=== PATIENT | male | born 1965 ===

== ENCOUNTER 2017-06-28 10:09 | Observation (INO) | payer OTHER ==
[2017-06-28 10:09] VITALS: BMI 25.5
--- NOTE | 2017-06-28 10:53 | C.PDOC ---
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 PS AWOKE "LIKE NORMAL" WAS SMOKING COCAINE WHILE SITTING IN CHAIR, WENT TO GET UP AND WALK BUT "MY LEG WAS ". UNABLE TO WT BEAR. SX NOW RESOLVED. NO TRAUMA. DENIES HEROIN, PCP USE. DENIES SUICIDAL IDEATION. NOT REQUESTING DETOX. 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 NO SI/SA REMAINDER NEG Time Seen by Provider: 06/28/17 10:47 Chief Complaint (Nursing): Substance Abuse History Per: Patient History/Exam Limitations: no limitations Past Medical History Reviewed: Historical Data, Nursing Documentation, Vital Signs Vital Signs: Last Vital Signs Temp 97.6 F 06/28/17 13:36 Pulse 90 06/28/17 13:36 Resp 20 06/28/17 13:36 BP 151/90 H 06/28/17 13:36 Pulse Ox 100 06/28/17 15:50 - Medical History PMH: Diabetes, HTN Denies: Chronic Kidney Disease Family History: States: No Known Family Hx - Social History Hx Tobacco Use: No Hx Alcohol Use: No Hx Substance Use: Yes - Immunization History Hx Tetanus Toxoid Vaccination: No Hx Influenza Vaccination: Yes Hx Pneumococcal Vaccination: No Review Of Systems Constitutional: Negative for: Fever Cardiovascular: Negative for: Chest Pain Gastrointestinal: Negative for: Vomiting Musculoskeletal: Positive for: Other (LEFT LEG DEADNESS) Psych: Negative for: Suicidal ideation, Withdrawal Physical Exam - Physical Exam Appears: Non-toxic, No Acute Distress, Other (poor hygeine) Skin: Normal Color, Warm, Dry, No Rash, Other (NO LESIONS WNL) Head: Atraumatic, Normacephalic Eye(s): bilateral: Normal Inspection, PERRL, EOMI Nose: Normal Neck: Normal ROM, Supple Chest: Symmetrical Cardiovascular: Rhythm Regular Respiratory: Normal Breath Sounds, No Wheezing Gastrointestinal/Abdominal: Normal Exam, Soft, No Tenderness Back: Normal Inspection Extremity: Normal ROM, No Tenderness, No Deformity, No Swelling Neurological/Psych: Other (calm and cooperative, no active intoxication. NEURO SEE [facility]) Gait: Steady Other Neurological Findings: Other (CALM COOPERATIVE NO ACTIVE INTOX, PSYCHOSIS. NO SI/SA) ED Course And Treatment - Laboratory Results Result Diagrams: 06/28/17 11:29 06/28/17 11:29 ECG: Interpreted By Me ECG Rhythm: Sinus Rhythm ECG Interpretation: Normal Rate From EC O2 Sat by Pulse Oximetry: 100 Pulse Ox Interpretation: Normal NIHSS Stroke Scale - Date/Time Evaluation Performed Date Performed: 06/28/17 Time Performed: 01:00 When Was NIHSS Performed: Baseline - How Severe is the Stroke Level of Consciousness: 0=Alert LOC to Questions: 0=Both comments correct LOC to commands: 0=Obeys both correctly Best Gaze: 0=Normal Visual: 0=No visual loss Facial: 0=Normal Motor Arm - Left: 0=No drift Motor Arm - Right: 0=No drift Motor Leg - Left: 0=No drift Motor Leg - Right: 0=No drift Limb Ataxia: 0=Absent Sensory: 0=Normal Best Language: 0=No aphasia Dysarthia: 0=Normal articulation Extinction & Inattention (Neglect): 0=Normal, no object Score: 0 NIHSS Stroke Scale 2 - Date/Time Evaluation Performed Date Performed: 06/28/17 Time Performed: 12:49 When Was NIHSS Performed: Re-evaluation - How Severe is the Stroke Level of Consciousness: 0=Alert LOC to Questions: 0=Both comments correct LOC to commands: 0=Obeys both correctly Best Gaze: 0=Normal Visual: 0=No visual loss Facial: 0=Normal Motor Arm - Left: 0=No drift Motor Arm - Right: 0=No drift Motor Leg - Left: 0=No drift Motor Leg - Right: 0=No drift Limb Ataxia: 0=Absent Sensory: 0=Normal Best Language: 0=No aphasia Dysarthia: 0=Normal articulation Extinction & Inattention (Neglect): 0=Normal, no object Score: 0 Progress - Re-Evaluation Re-evaluation Note: 06/28/17 12:21 D/W DR GARZA NEURO POWER REACTOR OPERATOR WILL CONSULT. RECOMMEND MRI 06/28/17 12:47 NEURO INTACT, [facility] FROM PRIOR EXAM. 06/28/17 12:48 D/W DR Olivia JAVIER WILL ADMIT - Data Reviewed Data Reviewed: Lab, Diagnostic imaging, EKG, Old records - Continuity of Care Discussed patient case with:: Patient, On-call PMD-pt unassigned rTPA Inclusion/Exclusion - Refusal of Treatment Patient Refused Treatment: No - Inclusion Criteria for Altepase Patient is 18 years or Older: Yes The Clinical Diagnosis of Ischemic Stroke That is Causing a Potentially Disabling Neurological Deficit: No Time of Onset is Well Established to be Less Than 270 Minute Before Treatment Would Begin: Yes Risk/Benefit Discussed With Patient/Family Member Present: Yes - Exclusion Criteria for Altepase Uncontrolled Hypertension at Time of Treatment (Systolic BP above 185 or Diastolic BP above 110 mmHg): Yes Active Internal Bleeding: No Known Bleeding Diathesis Including but Not Limited to: Platelets Below 100,000/ mm,PTT Above 40 sec After Heparin Use, Current Use of Oral Anitcoagulant With INR Greater Than 1.7 or PT Greater Than 15 secs: No Evidence of an Intracranial Hemorrhage: No Evidence of Major Acute Infarct With Signs Greater Than 1/3 MCA Territory: No Suspicion of Subarachnoid Hemorrhage on Pretreatment Evaluation Even if CT Head Negative For Hemorrhage: No - Warning to TPA With Conditions Following Conditions Weighed Against Anticipated Benefit: No Condition: Stroke Serevity Too Mild Disposition Counseled Patient/Family Regarding: Studies Performed, Diagnosis - Disposition Disposition: HOSPITALIZED Disposition Time: 12:49 Condition: STABLE - POA Present On Arrival: None - Clinical Impression Clinical Impression: TIA (transient ischemic attack), Cocaine abuse - Scribe Statement The provider has reviewed the documentation as recorded by the Scribe (Santino Gates) All medical record entries made by the Scribe were at my direction and personally dictated by me. I have reviewed the chart and agree that the record accurately reflects my personal performance of the history, physical exam, medical decision making, and the department course for this patient. I have also personally directed, reviewed, and agree with the discharge instructions and disposition. Decision To Admit - Pt Status Changed To: Hospital Disposition Of: Observation - . Bed Request Type: Telemetry Admitting Physician: J Luis Javier Patient Diagnosis: TIA (transient ischemic attack), Cocaine abuse
[2017-06-28] MEDS ORDERED: Sodium Chloride 0.9% 1,000 ML IV SCH (11:00)
[2017-06-28] MEDS ORDERED: Iodixanol 320 MG/ML 100 ML BOTTLE IV ONE (11:04)
--- NOTE | 2017-06-28 11:32 | CT ---
PROCEDURE: CT HEAD WITHOUT CONTRAST. HISTORY: Code Stroke COMPARISON: None available. TECHNIQUE: Axial computed tomography images were obtained through the head/brain without intravenous contrast. Radiation dose: Total exam DLP = 875.4 mGy-cm. This CT exam was performed using one or more of the following dose reduction techniques: Automated exposure control, adjustment of the mA and/or kV according to patient size, and/or use of iterative reconstruction technique. FINDINGS: HEMORRHAGE: No intracranial hemorrhage. BRAIN: No mass effect or edema. No atrophy or chronic microvascular ischemic changes. VENTRICLES: Unremarkable. No hydrocephalus. CALVARIUM: Unremarkable. PARANASAL SINUSES: Unremarkable as visualized. No significant inflammatory changes. MASTOID AIR CELLS: Unremarkable as visualized. No inflammatory changes. OTHER FINDINGS: None. IMPRESSION: No acute intracranial pathology. Conveyed to Dr. Donahue by Dr. Boyd at 11:30 a.m. on 06/28/2017.
[2017-06-28] MEDS ORDERED: Sodium Chloride 0.9% 1,000 ML ONE (11:33)
[2017-06-28 11:36] LABS: BASO # 0.1 K/uL (0.0-0.2); BASO % 0.8 % (0.0-2.0); EOS % 0.3 % (0.0-4.0); HEMOGLOBIN 13.8 g/dL (12.0-18.0); LYMPH # 1.2 K/uL (1.0-4.3); LYMPH % 10.5 % (20.0-40.0); MEAN CORPUSCULAR HEMOGLOBIN 30.2 pg (27.0-31.0); MEAN CORPUSCULAR HGB CONC 34.7 g/dL (33.0-37.0); MEAN PLATELET VOLUME 7.2 fL (7.2-11.7); MONO # 0.8 K/uL (0.0-0.8); MONO % 7.2 % (0.0-10.0); NEUT # 8.9 K/uL (1.8-7.0); NEUT % 81.2 % (50.0-75.0); RBC 4.57 Mil/uL (4.40-5.90); RED CELL DISTRIBUTION WIDTH 13.5 % (11.5-14.5)
[2017-06-28 11:42] LABS: INR 1.1; PROTHROMBIN TIME 12.2 SECONDS (9.7-12.2)
[2017-06-28 11:48] LABS: ALB/GLOB RATIO 1.2 (1.0-2.1); ALBUMIN 4.3 g/dL (3.5-5.0); ALT/SGPT 14 U/L (21-72); AST/SGOT 22 U/L (17-59); BLOOD UREA NITROGEN 19 mg/dL (9-20); GFR AFRICAN-AMERICAN > 60; GFR NON-AFRICAN AMERICAN > 60; HDL CHOLESTEROL 56 mg/dL (30-70)
--- NOTE | 2017-06-28 11:59 | RAD ---
HISTORY: Code Stroke COMPARISON: Chest radiograph dated 06/27/2014. FINDINGS: LUNGS: No active pulmonary disease. PLEURA: No significant pleural effusion identified, no pneumothorax apparent. CARDIOVASCULAR: Cardiomediastinal silhouette stably enlarged. OSSEOUS STRUCTURES: Unchanged. VISUALIZED UPPER ABDOMEN: Normal. OTHER FINDINGS: None. IMPRESSION: No active disease.
[2017-06-28 12:01] LABS: LDL CHOLESTEROL 82 mg/dL (0-129)
[2017-06-28 12:01] LABS: SQUAMOUS EPITHIAL < 1 /hpf (0-5); URINE BILIRUBIN NEGATIVE (NEGATIVE); URINE BLOOD 1+ (NEGATIVE); URINE CLARITY Clear (Clear); URINE COLOR Yellow (YELLOW); URINE GLUCOSE (UA) NORMAL (Normal); URINE LEUKOCYTE ESTERASE NEG Leu/uL (Negative); URINE PROTEIN NEGATIVE (NEGATIVE); URINE UROBILINOGEN NORMAL mg/dL (0.2-1.0)
--- NOTE | 2017-06-28 12:06 | CT ---
PROCEDURE: CTA HEAD AND NECK WITH CONTRAST HISTORY: L LEG WEAKNESS HO DRUG ABUSE COMPARISON: None available. TECHNIQUE: Initial noncontrast head CT was performed. Subsequently, CT angiogram of the head and neck were performed after the intravenous administration of 80 mL of Omnipaque 350. Contiguous 1.5mm thick images were obtained in the axial plane of the neck. 2-D coronal and sagittal MPR images were obtained. Imaging postprocessing was performed with 3-D images also obtained. A delayed contrast head CT was also obtained. This CT exam was performed using one or more of the following dose reduction techniques: Automated exposure control, adjustment of the mA and/or kV according to patient size, and/or use of iterative reconstruction technique. Contrast dose: 100 mL Visipaque Radiation dose: Total exam DLP = 603.06 mGy-cm. FINDINGS: HEAD: Right: The intracranial internal carotid artery, and anterior and middle cerebral arteries are widely patent. Left: The intracranial internal carotid artery, and anterior and middle cerebral arteries are widely patent. Posterior circulation: The visualized intracranial vertebral arteries, basilar artery and posterior cerebral arteries are widely patent. Ther is no endoluminal filling defect to suggest thrombus. There is no intracranial saccular aneurysm. NECK: There is a three vessel aortic arch. There is no stenosis at the origins of the great vessels at the level of the aortic arch. Right Carotid: On the right, the common carotid, internal carotid and external carotid arteries are widely patent. There is no hemodynamically significant stenosis in the internal carotid artery by NASCET criteria. Left Carotid: On the left, the common carotid, internal carotid and external carotid arteries are widely patent.There is no hemodynamically significant stenosis in the internal carotid artery by NASCET criteria. The vertebral arteries are widely patent. The left vertebral artery is hypoplastic, an anatomic variant. The visualized soft tissues of the neck are normal. The visualized brain and cervical spine are within normal limits. The lung apices are clear. IMPRESSION: 1. No evidence of endoluminal thrombus, occlusion or definite significant stenosis. 2. No evidence of hemodynamically significant stenosis in the internal carotid arteries by NASCET criteria. 3. Patent bilateral vertebral arteries. The left vertebral artery is hypoplastic, an anatomic variant.
[2017-06-28 12:31] LABS: BARBITURATES, UR NEGATIVE (NEGATIVE); BENZODIAZEPINES, UR NEGATIVE (NEGATIVE); OPIATES, UR NEGATIVE (NEGATIVE); PHENCYCLIDINE, UR NEGATIVE (NEGATIVE)
[2017-06-28 13:45] VITALS: RESP 20
--- NOTE | 2017-06-28 16:33 | CP.PCM.HP ---
<Eugenie Smith - Last Filed: 06/28/17 16:34> History of Present Illness - History of Present Illness History of Present Illness: CC - leg "deadness" HPI - 52 year old male with a past medical history of hypertension presents today complaining of leg "deadness" after using cocaine since 11:30 PM last night. He states that this am is was getting up from his recliner after inhaling cocaine and his right leg felt like it wasn't there. He denies falling , hitting his head, or LOC. He got scared and called a taxi to bring him to the ER for evaluation. He states that these symptoms have now resolved since arrival to the ED. He states that he only has some pain in the toe of his left foot. He denied chest pain, SOB, headaches, changes in vision, weakness/numbness /tingling, N/V, abd pain, urinary complain. Patient is able to tolerate PO intake and was eating a sandwich during the encounter. He stated that he was starving and would like more food. PMHx - polysubstance use (cocaine,marijuana,alcohol), HTN, dm? Meds - does not take any. states he was given one medication for BP after a hospitalization one year ago and took it for one month. never followed up Allergies - skin rash/itchy face to black hair dye Meds - none, no multivitamins/herbal use Famhx - father had a stoke, no other significant family history Social - occasional alcohol use (beer) last drink he had 2 beers 2 nights ago, cocaine use (inhaled) daily for the last week recebtly started using 10 months ago, occasional marijuana use. Denies IVD use. Patient sttes he lives with his but that his is currently not living there because she is upset about his drug use. 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 He was worried about his working finding out that he uses drugs. Advanced directive - none Proxy - but does not want us to inform her of his drug use Code status - full code PMD - none Present on Admission - Present on Admission Any Indicators Present on Admission: No Review of Systems - Constitutional Constitutional: absent: Chills, Fever - EENT Eyes: absent: Blurred Vision, Change in Vision - Cardiovascular Cardiovascular: absent: Chest Pain, Chest Pain at Rest, Palpitations, Pedal Edema, Syncope - Respiratory Respiratory: absent: Cough, Dyspnea, Dyspnea on Exertion - Gastrointestinal Gastrointestinal: Nausea, Vomiting. absent: Abdominal Pain, Constipation, Diarrhea - Genitourinary Genitourinary: absent: Difficulty Urinating - Musculoskeletal Musculoskeletal: Other. absent: Abnormal Gait, Numbness, Tingling Additional comments: R leg numbness but went away Leg great toe pain - Neurological Neurological: absent: Tingling, Weakness - Hematologic/Lymphatic Hematologic: absent: Easy Bleeding, Easy Bruising Past Patient History - Infectious Disease Hx of Infectious Diseases: None - Tetanus Immunizations Tetanus Immunization: Unknown - Past Medical History & Family History Past Medical History?: Yes - Past Social History Smoking Status: Never Smoked - CARDIAC Hx Hypertension: Yes - PULMONARY Hx Respiratory Disorders: No - NEUROLOGICAL Hx Neurological Disorder: No - HEENT Hx HEENT Problems: No - RENAL Hx Chronic Kidney Disease: No - ENDOCRINE/METABOLIC Hx Endocrine Disorders: No - HEMATOLOGICAL/ONCOLOGICAL Hx Blood Disorders: No - INTEGUMENTARY Hx Dermatological Problems: No - MUSCULOSKELETAL/RHEUMATOLOGICAL Hx Musculoskeletal Disorders: No - GASTROINTESTINAL Hx Gastrointestinal Disorders: No - GENITOURINARY/GYNECOLOGICAL Hx Genitourinary Disorders: No - PSYCHIATRIC Hx Substance Use: Yes - SURGICAL HISTORY Other/Comment: Skin procedure on chest 10 years ago - ANESTHESIA Hx Anesthesia: Yes Hx Anesthesia Reactions: No Meds Allergies/Adverse Reactions: Allergies Allergy/AdvReac Type Severity Reaction Status Date / Time hair dye Allergy Uncoded 03/25/14 17:46 Physical Exam - Constitutional Appears: Non-toxic, No Acute Distress, Unkempt - Head Exam Head Exam: ATRAUMATIC, NORMAL INSPECTION - Eye Exam Eye Exam: EOMI, PERRL Pupil Exam: NORMAL ACCOMODATION - ENT Exam ENT Exam: Mucous Membranes Moist - Respiratory Exam Respiratory Exam: Clear to Auscultation Bilateral, NORMAL BREATHING PATTERN. absent: Decreased Breath Sounds, Rhonchi, Wheezes, Respiratory Distress - Cardiovascular Exam Cardiovascular Exam: REGULAR RHYTHM, +S1, +S2, Systolic Murmur - GI/Abdominal Exam GI & Abdominal Exam: Normal Bowel Sounds, Soft. absent: Distended, Firm, Guarding, Tenderness - Extremities Exam Extremities exam: Positive for: normal inspection. Negative for: calf tenderness, pedal edema Additional comments: fungus toe nails - Back Exam Back exam: NORMAL INSPECTION. absent: CVA tenderness (L), CVA tenderness (R), paraspinal tenderness - Neurological Exam Neurological exam: Alert, CN II-XII Intact, Normal Gait, Oriented x3, Reflexes Normal - Expanded Neurological Exam Expanded Patient oriented to: person, place, time Speech: Fluid Speech Cranial nerves: EOM's Intact: Normal, Facial Palsey w/Forehead Movement: Normal , Facial Palsey w/o Forehead Movement: Normal, Facial Sensation: Normal, Nystagmus: Normal, Tongue Deviation: Normal Ataxia: No Cerebellar Function: Finger to Nose: Normal, Heel to Cifuentes: Normal, Romberg: Normal Upper motor neuron: Babinski Sign: Normal, Kwabena Neglect: Normal, Pronator Drift : Normal Neuro motor strength exam: Left Upper Extremity: 5, Right Upper Extremity: 5, Left Lower Extremity: 5, Right Lower Extremity: 5 Coma Scale Motor Response: OBEYS COMMANDS Coma Scale Verbal: Oriented - Psychiatric Exam Psychiatric exam: Anxious, Normal Affect - Skin Skin Exam: Normal Color, Warm Additional comments: flushed Results - Vital Signs Recent Vital Signs: Last Vital Signs Temp 98.1 F 06/28/17 15:20 Pulse 72 06/28/17 15:20 Resp 20 06/28/17 15:20 BP 143/82 06/28/17 15:20 Pulse Ox 100 06/28/17 15:53 - Labs Result Diagrams: 06/28/17 11:29 06/28/17 11:29 Labs: Laboratory Results - last 24 hr 06/28/17 06/28/17 06/28/17 11:29 11:29 11:29 WBC 11.0 H RBC 4.57 Hgb 13.8 Hct 39.8 MCV 87.0 D MCH 30.2 MCHC 34.7 RDW 13.5 Plt Count 230 MPV 7.2 Neut % (Auto) 81.2 H Lymph % (Auto) 10.5 L [place] % (Auto) 7.2 Eos % (Auto) 0.3 Baso % (Auto) 0.8 Neut # (Auto) 8.9 H Lymph # (Auto) 1.2 [place] # (Auto) 0.8 Eos # (Auto) 0.0 Baso # (Auto) 0.1 PT 12.2 INR 1.1 APTT 35 H Sodium 134 Potassium 3.6 Chloride 99 Carbon Dioxide 25 Anion Gap 14 BUN 19 Creatinine 0.9 Est GFR ( Amer) > 60 Est GFR (Non-Af Amer) > 60 Random Glucose 90 Hemoglobin A1c Calcium 9.0 Total Bilirubin 0.6 AST 22 ALT 14 L D Alkaline Phosphatase 72 Troponin I < 0.0120 Total Protein 7.7 Albumin 4.3 Globulin 3.5 Albumin/Globulin Ratio 1.2 Triglycerides 58 D Cholesterol 160 LDL Cholesterol Direct 82 HDL Cholesterol 56 Urine Color Urine Clarity Urine pH Ur Specific [place] Urine Protein Urine Glucose (UA) Urine Ketones Urine Blood Urine Nitrate Urine Bilirubin Urine Urobilinogen Ur Leukocyte Esterase Urine WBC (Auto) Urine RBC (Auto) Ur Squamous Epith Cells Urine Opiates Screen Urine Methadone Screen Ur Barbiturates Screen Ur Phencyclidine Scrn Ur Amphetamines Screen U Benzodiazepines Scrn U Oth Cocaine Metabols U Cannabinoids Screen Alcohol, Quantitative < 10 Blood Type Antibody Screen 06/28/17 06/28/17 06/28/17 11:29 11:29 11:42 WBC RBC Hgb Hct MCV MCH MCHC RDW Plt Count MPV Neut % (Auto) Lymph % (Auto) [place] % (Auto) Eos % (Auto) Baso % (Auto) Neut # (Auto) Lymph # (Auto) [place] # (Auto) Eos # (Auto) Baso # (Auto) PT INR APTT Sodium Potassium Chloride Carbon Dioxide Anion Gap BUN Creatinine Est GFR ( Amer) Est GFR (Non-Af Amer) Random Glucose Hemoglobin A1c 5.3 Calcium Total Bilirubin AST ALT Alkaline Phosphatase Troponin I Total Protein Albumin Globulin Albumin/Globulin Ratio Triglycerides Cholesterol LDL Cholesterol Direct HDL Cholesterol Urine Color Yellow Urine Clarity Clear Urine pH 6.0 Ur Specific [place] 1.015 Urine Protein Negative Urine Glucose (UA) Normal Urine Ketones Negative Urine Blood 1+ H Urine Nitrate Negative Urine Bilirubin Negative Urine Urobilinogen Normal Ur Leukocyte Esterase Neg Urine WBC (Auto) < 1 Urine RBC (Auto) 1 Ur Squamous Epith Cells < 1 Urine Opiates Screen Urine Methadone Screen Ur Barbiturates Screen Ur Phencyclidine Scrn Ur Amphetamines Screen U Benzodiazepines Scrn U Oth Cocaine Metabols U Cannabinoids Screen Alcohol, Quantitative Blood Type B POSITIVE Antibody Screen Negative 06/28/17 11:42 WBC RBC Hgb Hct MCV MCH MCHC RDW Plt Count MPV Neut % (Auto) Lymph % (Auto) [place] % (Auto) Eos % (Auto) Baso % (Auto) Neut # (Auto) Lymph # (Auto) [place] # (Auto) Eos # (Auto) Baso # (Auto) PT INR APTT Sodium Potassium Chloride Carbon Dioxide Anion Gap BUN Creatinine Est GFR ( Amer) Est GFR (Non-Af Amer) Random Glucose Hemoglobin A1c Calcium Total Bilirubin AST ALT Alkaline Phosphatase Troponin I Total Protein Albumin Globulin Albumin/Globulin Ratio Triglycerides Cholesterol LDL Cholesterol Direct HDL Cholesterol Urine Color Urine Clarity Urine pH Ur Specific [place] Urine Protein Urine Glucose (UA) Urine Ketones Urine Blood Urine Nitrate Urine Bilirubin Urine Urobilinogen Ur Leukocyte Esterase Urine WBC (Auto) Urine RBC (Auto) Ur Squamous Epith Cells Urine Opiates Screen Negative Urine Methadone Screen Negative Ur Barbiturates Screen Negative Ur Phencyclidine Scrn Negative Ur Amphetamines Screen Negative U Benzodiazepines Scrn Negative U Oth Cocaine Metabols Positive H U Cannabinoids Screen Positive H Alcohol, Quantitative Blood Type Antibody Screen Assessment & Plan - Assessment and Plan (Free Text) Assessment: GAYATHRI Addison, neurology consulted, help appreciated Head CT wnl - no bleed f/u MRI f/u TSH, free T4, HbA1c PT/OT Patient tolerating PO intake Monitor on tele vitals/neuor checks Q6 hours f/u echp - pt with systolic murmur Tropn negative x 1, will trend EKG no acute changes ASA 81mg PO daily Crestor 5mg PO HS Hypertension Hydralazine 10mg IVP only if bp> 220/120 no other meds for now will consider adding medical therapy after observation Polysubstance Use disorder Psych consulted - help appreciated UDS positive for cocaine and marijuana Alcohol <10 Avoid BBlock use Prophylaxis Heart healthy low sodium diet GI not indicated SCDs <J Luis Sandoval - Last Filed: 06/28/17 19:44> Results - Vital Signs Recent Vital Signs: Last Vital Signs Temp 98.1 F 06/28/17 15:20 Pulse 72 06/28/17 15:20 Resp 20 06/28/17 15:20 BP 143/82 06/28/17 15:20 Pulse Ox 100 06/28/17 17:12 - Labs Result Diagrams: 06/28/17 11:29 06/28/17 11:29 Labs: Laboratory Results - last 24 hr 06/28/17 06/28/17 06/28/17 11:29 11:29 11:29 WBC 11.0 H RBC 4.57 Hgb 13.8 Hct 39.8 MCV 87.0 D MCH 30.2 MCHC 34.7 RDW 13.5 Plt Count 230 MPV 7.2 Neut % (Auto) 81.2 H Lymph % (Auto) 10.5 L [place] % (Auto) 7.2 Eos % (Auto) 0.3 Baso % (Auto) 0.8 Neut # (Auto) 8.9 H Lymph # (Auto) 1.2 [place] # (Auto) 0.8 Eos # (Auto) 0.0 Baso # (Auto) 0.1 PT 12.2 INR 1.1 APTT 35 H Sodium 134 Potassium 3.6 Chloride 99 Carbon Dioxide 25 Anion Gap 14 BUN 19 Creatinine 0.9 Est GFR ( Amer) > 60 Est GFR (Non-Af Amer) > 60 POC Glucose (mg/dL) Random Glucose 90 Hemoglobin A1c Calcium 9.0 Total Bilirubin 0.6 AST 22 ALT 14 L D Alkaline Phosphatase 72 Total Creatine Kinase CK-MB (Mass) Troponin I < 0.0120 Total Protein 7.7 Albumin 4.3 Globulin 3.5 Albumin/Globulin Ratio 1.2 Triglycerides 58 D Cholesterol 160 LDL Cholesterol Direct 82 HDL Cholesterol 56 TSH 3rd Generation Urine Color Urine Clarity Urine pH Ur Specific [place] Urine Protein Urine Glucose (UA) Urine Ketones Urine Blood Urine Nitrate Urine Bilirubin Urine Urobilinogen Ur Leukocyte Esterase Urine WBC (Auto) Urine RBC (Auto) Ur Squamous Epith Cells Urine Opiates Screen Urine Methadone Screen Ur Barbiturates Screen Ur Phencyclidine Scrn Ur Amphetamines Screen U Benzodiazepines Scrn U Oth Cocaine Metabols U Cannabinoids Screen Alcohol, Quantitative < 10 Blood Type Antibody Screen 06/28/17 06/28/17 06/28/17 11:29 11:29 11:42 WBC RBC Hgb Hct MCV MCH MCHC RDW Plt Count MPV Neut % (Auto) Lymph % (Auto) [place] % (Auto) Eos % (Auto) Baso % (Auto) Neut # (Auto) Lymph # (Auto) [place] # (Auto) Eos # (Auto) Baso # (Auto) PT INR APTT Sodium Potassium Chloride Carbon Dioxide Anion Gap BUN Creatinine Est GFR ( Amer) Est GFR (Non-Af Amer) POC Glucose (mg/dL) Random Glucose Hemoglobin A1c 5.3 Calcium Total Bilirubin AST ALT Alkaline Phosphatase Total Creatine Kinase CK-MB (Mass) Troponin I Total Protein Albumin Globulin Albumin/Globulin Ratio Triglycerides Cholesterol LDL Cholesterol Direct HDL Cholesterol TSH 3rd Generation Urine Color Yellow Urine Clarity Clear Urine pH 6.0 Ur Specific [place] 1.015 Urine Protein Negative Urine Glucose (UA) Normal Urine Ketones Negative Urine Blood 1+ H Urine Nitrate Negative Urine Bilirubin Negative Urine Urobilinogen Normal Ur Leukocyte Esterase Neg Urine WBC (Auto) < 1 Urine RBC (Auto) 1 Ur Squamous Epith Cells < 1 Urine Opiates Screen Urine Methadone Screen Ur Barbiturates Screen Ur Phencyclidine Scrn Ur Amphetamines Screen U Benzodiazepines Scrn U Oth Cocaine Metabols U Cannabinoids Screen Alcohol, Quantitative Blood Type B POSITIVE Antibody Screen Negative 06/28/17 06/28/17 06/28/17 11:42 17:06 18:27 WBC RBC Hgb Hct MCV MCH MCHC RDW Plt Count MPV Neut % (Auto) Lymph % (Auto) [place] % (Auto) Eos % (Auto) Baso % (Auto) Neut # (Auto) Lymph # (Auto) [place] # (Auto) Eos # (Auto) Baso # (Auto) PT INR APTT Sodium Potassium Chloride Carbon Dioxide Anion Gap BUN Creatinine Est GFR ( Amer) Est GFR (Non-Af Amer) POC Glucose (mg/dL) 73 Random Glucose Hemoglobin A1c Calcium Total Bilirubin AST ALT Alkaline Phosphatase Total Creatine Kinase 254 H CK-MB (Mass) 1.79 Troponin I < 0.0120 Total Protein Albumin Globulin Albumin/Globulin Ratio Triglycerides Cholesterol LDL Cholesterol Direct HDL Cholesterol TSH 3rd Generation 3.70 Urine Color Urine Clarity Urine pH Ur Specific [place] Urine Protein Urine Glucose (UA) Urine Ketones Urine Blood Urine Nitrate Urine Bilirubin Urine Urobilinogen Ur Leukocyte Esterase Urine WBC (Auto) Urine RBC (Auto) Ur Squamous Epith Cells Urine Opiates Screen Negative Urine Methadone Screen Negative Ur Barbiturates Screen Negative Ur Phencyclidine Scrn Negative Ur Amphetamines Screen Negative U Benzodiazepines Scrn Negative U Oth Cocaine Metabols Positive H U Cannabinoids Screen Positive H Alcohol, Quantitative Blood Type Antibody Screen Attending/Attestation - Attestation I have personally seen and examined this patient.: Yes I have fully participated in the care of the patient.: Yes I have reviewed all pertinent clinical information: Yes Notes (Text): 06/28/17 19:44 Patient was seen and examined shortly after resident. History, Physical, assessment and plan were gone over with the resident. J Luis Sandoval D.O.
[2017-06-28 18:48] LABS: CK-MB 1.79 ng/mL (0.0-3.38)
[2017-06-29 07:31] LABS: BASO # 0.1 K/uL (0.0-0.2); BASO % 0.9 % (0.0-2.0); EOS # 0.2 K/uL (0.0-0.7); EOS % 2.3 % (0.0-4.0); HEMOGLOBIN 13.3 g/dL (12.0-18.0); LYMPH # 1.8 K/uL (1.0-4.3); LYMPH % 24.3 % (20.0-40.0); MEAN CELL VOLUME 88.1 fL (80.0-94.0); MEAN PLATELET VOLUME 7.3 fL (7.2-11.7); MONO # 0.9 K/uL (0.0-0.8); MONO % 12.4 % (0.0-10.0); NEUT # 4.4 K/uL (1.8-7.0); NEUT % 60.1 % (50.0-75.0); NRBC % 0.1 % (0.0-2.0); RBC 4.43 Mil/uL (4.40-5.90); RED CELL DISTRIBUTION WIDTH 13.8 % (11.5-14.5); WHITE BLOOD COUNT 7.3 K/uL (4.8-10.8)
[2017-06-29 07:51] LABS: BLOOD UREA NITROGEN 15 mg/dL (9-20); CALCIUM 8.5 mg/dl (8.6-10.4); GFR AFRICAN-AMERICAN > 60; GFR NON-AFRICAN AMERICAN > 60
[2017-06-29 08:07] VITALS: BP 156/88; TEMP 98.2; O2SAT 97
[2017-06-29 08:40] VITALS: PULSE 67
[2017-06-29 09:58] LABS: CK-MB 1.05 ng/mL (0.0-3.38)
--- NOTE | 2017-06-29 10:44 | CP.PCM.DIS ---
<Eric Boogie - Last Filed: 06/29/17 16:06> Provider - Provider Date of Admission: 06/28/17 13:04 Attending physician: J Luis Sandoval MD Primary care physician: clinic Consults: Jean-Paul Crowley Time Spent in preparation of Discharge (in minutes): 45 Hospital Course - Lab Results Lab Results: Most Recent Lab Values WBC 7.3 K/uL (4.8-10.8) 06/29/17 07:20 RBC 4.43 Mil/uL (4.40-5.90) 06/29/17 07:20 Hgb 13.3 g/dL (12.0-18.0) 06/29/17 07:20 Hct 39.0 % (35.0-51.0) 06/29/17 07:20 MCV 88.1 fL (80.0-94.0) 06/29/17 07:20 MCH 30.0 pg (27.0-31.0) 06/29/17 07:20 MCHC 34.0 g/dL (33.0-37.0) 06/29/17 07:20 RDW 13.8 % (11.5-14.5) 06/29/17 07:20 Plt Count 198 K/uL (130-400) 06/29/17 07:20 MPV 7.3 fL (7.2-11.7) 06/29/17 07:20 Neut % (Auto) 60.1 % (50.0-75.0) 06/29/17 07:20 Lymph % (Auto) 24.3 % (20.0-40.0) 06/29/17 07:20 [place] % (Auto) 12.4 % (0.0-10.0) H 06/29/17 07:20 Eos % (Auto) 2.3 % (0.0-4.0) 06/29/17 07:20 Baso % (Auto) 0.9 % (0.0-2.0) 06/29/17 07:20 Neut # (Auto) 4.4 K/uL (1.8-7.0) 06/29/17 07:20 Lymph # (Auto) 1.8 K/uL (1.0-4.3) 06/29/17 07:20 [place] # (Auto) 0.9 K/uL (0.0-0.8) H 06/29/17 07:20 Eos # (Auto) 0.2 K/uL (0.0-0.7) 06/29/17 07:20 Baso # (Auto) 0.1 K/uL (0.0-0.2) 06/29/17 07:20 PT 12.2 SECONDS (9.7-12.2) 06/28/17 11:29 INR 1.1 06/28/17 11:29 APTT 35 SECONDS (21-34) H 06/28/17 11:29 Sodium 140 mmol/L (132-148) 06/29/17 07:20 Potassium 3.8 mmol/L (3.6-5.2) 06/29/17 07:20 Chloride 105 mmol/L (98-107) 06/29/17 07:20 Carbon Dioxide 26 mmol/L (22-30) 06/29/17 07:20 Anion Gap 13 (10-20) 06/29/17 07:20 BUN 15 mg/dL (9-20) 06/29/17 07:20 Creatinine 0.9 mg/dL (0.8-1.5) 06/29/17 07:20 Est GFR ( Amer) > 60 06/29/17 07:20 Est GFR (Non-Af Amer) > 60 06/29/17 07:20 POC Glucose (mg/dL) 73 mg/dL (65-110) 06/28/17 17:06 Random Glucose 91 mg/dL (75-110) 06/29/17 07:20 Hemoglobin A1c 5.2 % (4.2-6.5) 06/28/17 19:56 Calcium 8.5 mg/dl (8.6-10.4) L 06/29/17 07:20 Phosphorus 2.9 mg/dL (2.5-4.5) 06/29/17 07:20 Magnesium 2.2 mg/dL (1.6-2.3) 06/29/17 07:20 Total Bilirubin 0.6 mg/dL (0.2-1.3) 06/28/17 11:29 AST 22 U/L (17-59) 06/28/17 11:29 ALT 14 U/L (21-72) L D 06/28/17 11:29 Alkaline Phosphatase 72 U/L (38-126) 06/28/17 11:29 Total Creatine Kinase 139 U/L (55-170) 06/29/17 07:20 CK-MB (Mass) 1.05 ng/mL (0.0-3.38) 06/29/17 07:20 Troponin I < 0.0120 ng/mL (0.00-0.120) 06/29/17 07:20 Total Protein 7.7 g/dL (6.3-8.3) 06/28/17 11:29 Albumin 4.3 g/dL (3.5-5.0) 06/28/17 11:29 Globulin 3.5 gm/dL (2.2-3.9) 06/28/17 11:29 Albumin/Globulin Ratio 1.2 (1.0-2.1) 06/28/17 11:29 Triglycerides 58 mg/dL (0-149) D 06/28/17 11:29 Cholesterol 160 mg/dL (0-199) 06/28/17 11:29 LDL Cholesterol Direct 82 mg/dL (0-129) 06/28/17 11:29 HDL Cholesterol 56 mg/dL (30-70) 06/28/17 11:29 Free T4 0.95 ng/dL (0.78-2.19) 06/28/17 19:56 TSH 3rd Generation 3.70 mIU/L (0.46-4.68) 06/28/17 18:27 Urine Color Yellow (YELLOW) 06/28/17 11:42 Urine Clarity Clear (Clear) 06/28/17 11:42 Urine pH 6.0 (5.0-8.0) 06/28/17 11:42 Ur Specific [place] 1.015 (1.003-1.030) 06/28/17 11:42 Urine Protein Negative mg/dL (NEGATIVE) 06/28/17 11:42 Urine Glucose (UA) Normal mg/dL (Normal) 06/28/17 11:42 Urine Ketones Negative mg/dL (NEGATIVE) 06/28/17 11:42 Urine Blood 1+ (NEGATIVE) H 06/28/17 11:42 Urine Nitrate Negative (NEGATIVE) 06/28/17 11:42 Urine Bilirubin Negative (NEGATIVE) 06/28/17 11:42 Urine Urobilinogen Normal mg/dL (0.2-1.0) 06/28/17 11:42 Ur Leukocyte Esterase Neg Lydia/uL (Negative) 06/28/17 11:42 Urine WBC (Auto) < 1 /hpf (0-5) 06/28/17 11:42 Urine RBC (Auto) 1 /hpf (0-3) 06/28/17 11:42 Ur Squamous Epith Cells < 1 /hpf (0-5) 06/28/17 11:42 Urine Opiates Screen Negative (NEGATIVE) 06/28/17 11:42 Urine Methadone Screen Negative (NEGATIVE) 06/28/17 11:42 Ur Barbiturates Screen Negative (NEGATIVE) 06/28/17 11:42 Ur Phencyclidine Scrn Negative (NEGATIVE) 06/28/17 11:42 Ur Amphetamines Screen Negative (NEGATIVE) 06/28/17 11:42 U Benzodiazepines Scrn Negative (NEGATIVE) 06/28/17 11:42 U Oth Cocaine Metabols Positive (NEGATIVE) H 06/28/17 11:42 U Cannabinoids Screen Positive (NEGATIVE) H 06/28/17 11:42 Alcohol, Quantitative < 10 mg/dl (0-10) 06/28/17 11:29 Blood Type B POSITIVE 06/28/17 11:29 Antibody Screen Negative 06/28/17 11:29 - Hospital Course Hospital Course: 52 year old male with a past medical history of hypertension presents today complaining of leg "deadness" after using cocaine since 11:30 PM last night. He states that this am is was getting up from his recliner after inhaling cocaine and his right leg felt like it wasn't there. He denies falling, hitting his head , or LOC. He got scared and called a taxi to bring him to the ER for evaluation. He states that these symptoms have now resolved since arrival to the ED. He states that he only has some pain in the toe of his left foot. He denied chest pain, SOB, headaches, changes in vision, weakness/numbness/tingling , N/V, abd pain, urinary complain. Patient is able to tolerate PO intake and was eating a sandwich during the encounter. He stated that he was starving and would like more food. Hospital Course: Patient did not have a stroke. He was sitting down on his chair for too long and his legs fell asleep. All studies are negative. Patient admits to cocaine use. Advised to seek counseling. Told patient to follow up in our clinic. Patient discharged on atorvastatin, ASA and Lisinopril. Discharge Exam - Head Exam Head Exam: ATRAUMATIC, NORMAL INSPECTION - Eye Exam Eye Exam: EOMI, Normal appearance, PERRL Pupil Exam: NORMAL ACCOMODATION, PERRL - GI/Abdominal Exam GI & Abdominal Exam: Normal Bowel Sounds - Rectal Exam Rectal Exam: NORMAL INSPECTION - Exam Exam: Circumcision, NORMAL INSPECTION External exam: NORMAL EXTERNAL EXAM Speculum exam: NORMAL SPECULUM EXAM Bimanual exam: NORMAL BIMANUAL EXAM - Neurological Exam Neurological exam: Alert, CN II-XII Intact, Normal Gait, Oriented x3, Reflexes Normal - Psychiatric Exam Psychiatric exam: Normal Affect, Normal Mood - Skin Skin Exam: Dry, Intact, Normal Color, Warm Discharge Plan - Discharge Medications Prescriptions: Aspirin [Aspirin Chewable] 81 mg PO DAILY #30 ctb Atorvastatin [Lipitor] 10 mg PO DIN #30 tab Lisinopril [Zestril] 20 mg PO DAILY #30 tablet - Follow Up Plan Condition: STABLE Disposition: HOME/ ROUTINE Instructions: Heart Healthy Diet, Cocaine Use Disorder, Transient Ischemic Attack (DC), Drug Abuse and Drug Addiction (DC), Aspirin, Atorvastatin, Lisinopril, Drug Abuse Treatment Additional Instructions: Please follow up in our clinic. I have attached the information. Please call to make an appointment Please Take the following medications: 1. Lisinopril 20mg by mouth with breakfast 2. Aspirin 81mg by mouth with breakfast 3. Atorvastatin 10mg by mouth with dinner Please contact the narcotics anonymous program in your town. The number is [phone] Referrals: [facility] at [facility] [Outside] Jung Prabhakar MD [Staff Provider] - Maura Jeong MD [Staff Provider] - <J Luis Sandoval - Last Filed: 06/29/17 20:14> Provider - Provider Date of Admission: 06/28/17 13:04 Attending physician: J Luis Sandoval MD Time Spent in preparation of Discharge (in minutes): 40 Hospital Course - Lab Results Lab Results: Most Recent Lab Values WBC 7.3 K/uL (4.8-10.8) 06/29/17 07:20 RBC 4.43 Mil/uL (4.40-5.90) 06/29/17 07:20 Hgb 13.3 g/dL (12.0-18.0) 06/29/17 07:20 Hct 39.0 % (35.0-51.0) 06/29/17 07:20 MCV 88.1 fL (80.0-94.0) 06/29/17 07:20 MCH 30.0 pg (27.0-31.0) 06/29/17 07:20 MCHC 34.0 g/dL (33.0-37.0) 06/29/17 07:20 RDW 13.8 % (11.5-14.5) 06/29/17 07:20 Plt Count 198 K/uL (130-400) 06/29/17 07:20 MPV 7.3 fL (7.2-11.7) 06/29/17 07:20 Neut % (Auto) 60.1 % (50.0-75.0) 06/29/17 07:20 Lymph % (Auto) 24.3 % (20.0-40.0) 06/29/17 07:20 [place] % (Auto) 12.4 % (0.0-10.0) H 06/29/17 07:20 Eos % (Auto) 2.3 % (0.0-4.0) 06/29/17 07:20 Baso % (Auto) 0.9 % (0.0-2.0) 06/29/17 07:20 Neut # (Auto) 4.4 K/uL (1.8-7.0) 06/29/17 07:20 Lymph # (Auto) 1.8 K/uL (1.0-4.3) 06/29/17 07:20 [place] # (Auto) 0.9 K/uL (0.0-0.8) H 06/29/17 07:20 Eos # (Auto) 0.2 K/uL (0.0-0.7) 06/29/17 07:20 Baso # (Auto) 0.1 K/uL (0.0-0.2) 06/29/17 07:20 PT 12.2 SECONDS (9.7-12.2) 06/28/17 11:29 INR 1.1 06/28/17 11:29 APTT 35 SECONDS (21-34) H 06/28/17 11:29 Sodium 140 mmol/L (132-148) 06/29/17 07:20 Potassium 3.8 mmol/L (3.6-5.2) 06/29/17 07:20 Chloride 105 mmol/L (98-107) 06/29/17 07:20 Carbon Dioxide 26 mmol/L (22-30) 06/29/17 07:20 Anion Gap 13 (10-20) 06/29/17 07:20 BUN 15 mg/dL (9-20) 06/29/17 07:20 Creatinine 0.9 mg/dL (0.8-1.5) 06/29/17 07:20 Est GFR ( Amer) > 60 06/29/17 07:20 Est GFR (Non-Af Amer) > 60 06/29/17 07:20 POC Glucose (mg/dL) 73 mg/dL (65-110) 06/28/17 17:06 Random Glucose 91 mg/dL (75-110) 06/29/17 07:20 Hemoglobin A1c 5.2 % (4.2-6.5) 06/28/17 19:56 Calcium 8.5 mg/dl (8.6-10.4) L 06/29/17 07:20 Phosphorus 2.9 mg/dL (2.5-4.5) 06/29/17 07:20 Magnesium 2.2 mg/dL (1.6-2.3) 06/29/17 07:20 Total Bilirubin 0.6 mg/dL (0.2-1.3) 06/28/17 11:29 AST 22 U/L (17-59) 06/28/17 11:29 ALT 14 U/L (21-72) L D 06/28/17 11:29 Alkaline Phosphatase 72 U/L (38-126) 06/28/17 11:29 Total Creatine Kinase 139 U/L (55-170) 06/29/17 07:20 CK-MB (Mass) 1.05 ng/mL (0.0-3.38) 06/29/17 07:20 Troponin I < 0.0120 ng/mL (0.00-0.120) 06/29/17 07:20 Total Protein 7.7 g/dL (6.3-8.3) 06/28/17 11:29 Albumin 4.3 g/dL (3.5-5.0) 06/28/17 11: Globulin 3.5 gm/dL (2.2-3.9) 06/28/17 11:29 Albumin/Globulin Ratio 1.2 (1.0-2.1) 06/28/17 11:29 Triglycerides 58 mg/dL (0-149) D 06/28/17 11:29 Cholesterol 160 mg/dL (0-199) 06/28/17 11:29 LDL Cholesterol Direct 82 mg/dL (0-129) 06/28/17 11:29 HDL Cholesterol 56 mg/dL (30-70) 06/28/17 11:29 Free T4 0.95 ng/dL (0.78-2.19) 06/28/17 19:56 TSH 3rd Generation 3.70 mIU/L (0.46-4.68) 06/28/17 18:27 Urine Color Yellow (YELLOW) 06/28/17 11:42 Urine Clarity Clear (Clear) 06/28/17 11:42 Urine pH 6.0 (5.0-8.0) 06/28/17 11:42 Ur Specific [place] 1.015 (1.003-1.030) 06/28/17 11:42 Urine Protein Negative mg/dL (NEGATIVE) 06/28/17 11:42 Urine Glucose (UA) Normal mg/dL (Normal) 06/28/17 11:42 Urine Ketones Negative mg/dL (NEGATIVE) 06/28/17 11:42 Urine Blood 1+ (NEGATIVE) H 06/28/17 11:42 Urine Nitrate Negative (NEGATIVE) 06/28/17 11:42 Urine Bilirubin Negative (NEGATIVE) 06/28/17 11:42 Urine Urobilinogen Normal mg/dL (0.2-1.0) 06/28/17 11:42 Ur Leukocyte Esterase Neg [place]ydia/uL (Negative) 06/28/17 11:42 Urine WBC (Auto) < 1 /hpf (0-5) 06/28/17 11:42 Urine RBC (Auto) 1 /hpf (0-3) 06/28/17 11:42 Ur Squamous Epith Cells < 1 /hpf (0-5) 06/28/17 11:42 Urine Opiates Screen Negative (NEGATIVE) 06/28/17 11:42 Urine Methadone Screen Negative (NEGATIVE) 06/28/17 11:42 Ur Barbiturates Screen Negative (NEGATIVE) 06/28/17 11:42 Ur Phencyclidine Scrn Negative (NEGATIVE) 06/28/17 11:42 Ur Amphetamines Screen Negative (NEGATIVE) 06/28/17 11:42 U Benzodiazepines Scrn Negative (NEGATIVE) 06/28/17 11:42 U Oth Cocaine Metabols Positive (NEGATIVE) H 06/28/17 11:42 U Cannabinoids Screen Positive (NEGATIVE) H 06/28/17 11:42 Alcohol, Quantitative < 10 mg/dl (0-10) 06/28/17 11:29 Blood Type B POSITIVE 06/28/17 11:29 Antibody Screen Negative 06/28/17 11:29 Attending/Attestation - Attestation I have personally seen and examined this patient.: Yes I have fully participated in the care of the patient.: Yes I have reviewed all pertinent clinical information, including history, physical exam and plan: Yes Notes (Text): 06/29/17 20:05 Patient was seen and examined shortly after the resident Dr. Syed Rosario. Exam, assessment and plan and discharge instructions were gone over with the resident. J Luis Sandoval D.O.
--- NOTE | 2017-06-29 12:38 | CARD ---
APPROVED REPORT EXAM: Two-dimensional and M-mode echocardiogram with Doppler and color Doppler. Other Information Quality : GoodRhythm : INDICATION CVA/TIA Chest Pain Murmur COCAIN AND ALCOHOL ABUSE RISK FACTORS Hypertension 2D DIMENSIONS IVSd1.6 (0.7-1.1cm)LVDd4.2 (3.9-5.9cm) PWd1.4 (0.7-1.1cm)LVDs2.4 (2.5-4.0cm) FS (%) 42.9 %LVEF (%)74.3 (>50%) M-Mode DIMENSIONS RVDd2.21 (2.1-3.2cm)Left Atrium (MM)4.34 (2.5-4.0cm) IVSd1.85 (0.7-1.1cm)Aortic Root3.06 (2.2-3.7cm) LVDd4.46 (4.0-5.6cm)Aortic Cusp Exc.2.21 (1.5-2.0cm) PWd1.46 (0.7-1.1cm)FS (%) 46 % LVDs2.41 (2.0-3.8cm)LVEF (%)78 (>50%) Mitral Valve MV E Xsfmqmmu33.0cm/sMV A Oogxuhuw83.5cm/sE/A ratio1.2 TDI E/Lateral E'0.0E/Medial E'0.0 Tricuspid Valve TR Peak [id number]/sTR Peak [id number] <Conclusion> normal size lv,ra & rv. la is mildly dilated. moderate degree of lvh with lvef of 65-70%. normal mitralaortic,tv & pv. mild mr,tr & pi with normal pulmonary systolic pressures of 25 mm of hg. no pericardial effusion. normal size ivc & aortic root. no pericardial effusion.
--- NOTE | 2017-06-29 14:56 | CARD ---
APPROVED REPORT EKG Measurement Heart [id number] [place] [id number] <Conclusion> Normal sinus rhythm. lvh.non specific st t changes.
--- NOTE | 2017-06-29 14:57 | CARD ---
APPROVED REPORT EKG Measurement Heart [id number] VT 126P57 [id number] <Conclusion> Normal sinus rhythm Possible Left atrial enlargement Nonspecific T wave abnormality Prolonged QT Abnormal ECG
[2017-06-30] MEDS ORDERED: Pneumococcal 23-Valent Vaccine IM ONE (14:00)
== END 2017-06-29 12:10 | disposition home or self-care (01) ==
LOC: C.ER 10:09 → C.9E 13:04 → C.6T 13:20
PROVIDERS: ADMIT Family Medicine; ATTEND Family Medicine
DX: R20.0 Anesthesia of skin (principal); E11.9 Type 2 diabetes mellitus without complications; F14.10 Cocaine abuse, uncomplicated; I10 Essential (primary) hypertension; Z79.82 Long term (current) use of aspirin
CPT/HCPCS: 36415; 70450; 70496; 70498; 71045; 80048; 80053; 80061; 80320; 80324; 80345; 80346; 80349; 80353; 80358; 80361; 81001; 82948; 83036; 83735; 83992; 84100; 84439; 84443; 84484; 85025; 85610; 85730; 86850; 86900; 93005; 93306; 97161; 97165; 97530; 99285; G0378; G8978; G8979; G8980; G8987; G8988; G8989; J7040; Q9967